=== PATIENT | male | born 2000 | race Caucasian/White ===

== ENCOUNTER 2025-02-17 18:57 | Emergency (ER) | payer SELFPAY ==
[2025-02-17 19:05] VITALS: BP 138/76; PULSE 70; RESP 18; TEMP 36.8; O2SAT 97; BMI 20.7
[2025-02-17 19:26] VITALS: BP 138/76; O2SAT 93
--- NOTE | 2025-02-17 19:54 | XRR_ITS ---
PROCEDURE INFORMATION: Exam: XR Right Tibia and Fibula Exam date and time: 02/17/2025 8:02 PM Age: 24 years old Clinical indication: Laceration TECHNIQUE: Imaging protocol: Radiologic exam of the right tibia and fibula. Views: 2 views. COMPARISON: No relevant prior studies available. FINDINGS: Bones/joints: No acute fracture. Soft tissues: Laceration with subcutaneous gas involving the medial leg. No radiopaque foreign body. XR/XR tibia fibula RT 2V [id number] IMPRESSION: 1. No acute osseous abnormality. 2. Laceration with subcutaneous gas involving the medial leg.
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
[2025-02-17] MEDS: tetanus-dipt-pertussis 0.5 mL SDV IM (20:36)
[2025-02-17] MEDS: cefTRIAXone 1,000 MG in water for injection-sterile 2.1 ML 2.1 MG IM (20:36)
[2025-02-17 20:46] VITALS: BP 148/78; PULSE 87; RESP 17; O2SAT 94
== END 2025-02-17 20:47 | disposition home or self-care (01) ==
PROVIDERS: Emergency Provider Physician Assistant
DX: S81.811A Laceration without foreign body, right lower leg, initial encounter (principal); X78.1XXA Intentional self-harm by knife, initial encounter
CPT/HCPCS: 73590; 90715; 96372; 99284; J0696